=== PATIENT | female | born 1995 | race Caucasian/White ===

== ENCOUNTER → 2016-11-23 19:40 | Observation (INO) ==
[2016-11-23 18:56] LABS: Bilirubin,Urine Negative (Negative); Blood,Urine Negative (Negative); Clarity,Urine Cloudy (Clear); Color,Urine Yellow (Yellow); Glucose,Urine (UA) Normal (Normal); Ketones,Urine Negative (Negative); Leukocyte Esterase,Urine Negative (Negative); Nitrite,Urine Negative (Negative); PH,Urine 5.5 pH Units (5.0-8.0); Protein,Urine Negative (Neg-Trace); Specific Gravity,Urine > 1.030 (1.010-1.025); Urobilinogen,Urine Normal (Normal)
[2016-11-23 18:57] LABS: Bacteria,Urine None Seen per hpf (None-Few); Hyaline Casts,Urine None Seen per lpf (None-Few); RBC,Urine 0-3 per hpf (0-3); Squamous Epithelial Cell,Urine Many per lpf (None-Few)
--- NOTE | 2016-11-23 19:29 | OB/GYN Progress Note ---
Date of Encounter: 11/23/16 Time of Encounter: 19:26 - Assessment and Plan (1) 24 weeks gestation of Current Visit: Yes Status: Acute (2) Pain of round ligament affecting , antepartum Current Visit: Yes Status: Acute Pt reports pain has improved since arrival to triage and being off her feet. She already has appt with Dr. Talamantes on Saturday. Will give work excuse for the weekend in case she continues to have discomfort. SVE closed and thick. Discharge home with precautions. Subjective - Subjective Principal diagnosis: sharp pain in vagina Interval history: 21 year-old presenting at 24 weeks gestation with c/o sharp vaginal pain. 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 She states it is a constant dull pressure with intermittent sharp pain in bilateral lower abdomen and vagina that lasts only a few seconds at a time. She denies cramping, contraction, LOF, VB, urinary sx, vaginal discharge, itching, or burning. Good FM. She gets care with Dr. Talamantes and denies any complications with this . Antepartum ROS: movement normal, no loss of fluid, no vaginal bleeding, no contractions Objective - Vital Signs Vital Signs: Intake and Output 11/23/16 11/23/16 11/23/16 07:59 15:59 23:59 Other: Weight 95.6 kg Patient Weight 11/23/16 23:59 Weight 95.6 kg - Exam FHR comments: FHT reassuring for GA Abdomen: Present: soft, gravid. Absent: tenderness Uterus: Absent: tenderness Cervical dilation: closed Cervix effacement: thick station: high - Labs Labs: Abnormal lab results Urine Clarity Cloudy (Clear) A 11/23/16 18:45 Ur Specific [place] > 1.030 (1.010-1.025) H 11/23/16 18:45 Urine Microscopic WBC 3-5 per hpf (0-3) H 11/23/16 18:45 Ur Squamous Epith Cells Many per lpf (None-Few) H 11/23/16 18:45
== END | disposition home or self-care (01) ==
LOC: 1NENULAB
PROVIDERS: ADMIT Obstetrics & Gynecology; ATTEND Obstetrics & Gynecology

== ENCOUNTER → 2017-01-20 13:11 | Observation (INO) ==
--- NOTE | 2017-01-20 13:24 | OB/GYN Progress Note ---
Date of Encounter: 01/20/17 Time of Encounter: 13:19 (Triaged by RN, no OB issues reported, pt. with c/o cardiac symptoms. Sent to ED) - Assessment and Plan (1) 32 weeks gestation of Current Visit: Yes Status: Acute (2) with care elsewhere in third trimester Current Visit: Yes Status: Acute (3) Decreased hearing Current Visit: Yes Status: Acute Qualifiers: Laterality: bilateral Qualified Code(s): H91.93 - Unspecified hearing loss , bilateral (4) Tachycardia Current Visit: Yes Status: Acute Objective - Vital Signs Vital Signs: Intake and Output 01/19/17 01/20/17 01/20/17 23:59 07:59 15:59 Other: Weight 97.7 kg Patient Weight 01/20/17 23:59 Weight 97.7 kg
== END | disposition other institution (70) ==
LOC: 1NENULAB

== ENCOUNTER → 2017-01-26 18:15 | Observation (INO) ==
--- NOTE | 2017-01-29 13:00 | OB Labor Progress Note ---
Date of Encounter: 01/26/17 Time of Encounter: 14:00 Labor Progress Note - Plan Plan: Albin patient with a history of tachycardia presented to L and D for [facility] evjose francisco. evaluation done neg, vitals stable, NST reactive, patient discharged to see Albin.
== END | disposition home or self-care (01) ==
LOC: 1NENULAB
PROVIDERS: ADMIT Student in an Organized Health Care Education/Training Program; ATTEND Student in an Organized Health Care Education/Training Program

== ENCOUNTER → 2017-02-20 00:18 | Observation (INO) ==
--- NOTE | 2017-02-20 00:11 | Discharge Summary ---
Date of Encounter: 02/20/17 Time of Encounter: 00:11 - Discharge Diagnosis (1) 37 weeks gestation of Priority: Primary Status: Acute Comments: admit for observation for increased movement. (2) NST (non-stress test) reactive on surveillance Priority: Secondary Status: Acute Comments: Baseline 125 bpm moderate variability +15x15 accels no decels noted. Irregular contractions noted. Cat. 1 tracing. - Discharge Medications Home Medications: Vit Calc,Iron,Folic [ Vitamins] 1 tab PO DAILY 11/23/16 [ History] Allergies/Adverse Reactions: Allergies No Known Allergies Allergy (Verified 02/19/17 23:08) Date of admission: 02/19/17 22:47 Discharging clinician: Zuleika Florez Anticipated date of discharge: 02/20/17 - Patient Status Disposition: Home, Self-Care Condition: Good Functional capacity at discharge: independent ambulation - Discharge Instructions Follow Up With: Yolis Talamantes MD [Non-Partnered Physician] - - Diet and Activity Activity: increase activity as tolerated Diet: regular diet Hospital Course [facility] Hospital course: Patient is a 22 y/o at 37w3d presents to labor and delivery with complaints of increased movement. Patient denies contractions, LOF, VB, fever, dysuria or urinary frequency. Patient's primary OB provider is Dr. Talamanets. Time Attestation: Total time spent providing and/or coordinating discharge services: Time Spent: Less than 30 minutes Exam - Constitutional General appearance IM: A&O X 3, no acute distress, answers questions appropriately - Other Additional findings: FHR 125 bpm moderate variability +15x15 accels no decels noted. Irregular contractions noted. Reactive NST - VTE Reasons for not Prescribing Prophylaxis: Treatment not Indicated - Low risk for VTE
== END | disposition home or self-care (01) ==
LOC: 1NENULAB
PROVIDERS: ADMIT Obstetrics & Gynecology; ATTEND Obstetrics & Gynecology